=== PATIENT | male | born 1975 | race Caucasian/White ===

== ENCOUNTER → 2019-08-09 | Outpatient (CLI) | payer OTHER ==
[~2019-08-09] MED LIST: NORCO 5-325 TA1 EACH PO
== END ==
LOC: M.ULTRA 10:40
DX: K76.0 Fatty (change of) liver, not elsewhere classified (principal); K76.89 Other specified diseases of liver

== ENCOUNTER → 2019-10-03 | Outpatient (CLI) | payer OTHER | LOC: M.MRI 08:30 | DX: M47.816 Spondylosis without myelopathy or radiculopathy, lumbar region (principal); G93.0 Cerebral cysts; M48.062 Spinal stenosis, lumbar region with neurogenic claudication; M51.27 Other intervertebral disc displacement, lumbosacral region ==